=== PATIENT | male | born 1965 | race Caucasian/White ===

== ENCOUNTER 2020-06-24 09:51 | Emergency (ER) | payer OTHER ==
[2020-06-24 10:29] VITALS: BP 140/73; PULSE 90; TEMP 98.3; BMI 30.1
[2020-06-24] MEDS ORDERED: SODIUM CHLORIDE 1,000 ML IV STA (10:40)
[2020-06-24 11:56] LABS: BASO % 0.7 % (0-2.0); EOS % 0.4 % (0-4.5); HEMATOCRIT 43.1 % (35.4-49); HEMOGLOBIN 14.4 GM/dL (11.7-16.9); LYMPH % 14.3 % (8-40); MCH 28.9 pg (25.7-33.7); MCHC 33.4 g/dl (32.0-35.9); MEAN CELL VOLUME 86.7 fl (80-96); MEAN PLT VOLUME 9.8 fl (7.5-11.1); MONO % 4.8 % (3.8-10.2); NEUT % 79.8 % (42.8-82.8); PLATELET COUNT 201 K/MM3 (134-434); RBC 4.98 M/mm3 (4.00-5.60); RDW 13.7 % (11.9-15.9); WHITE BLOOD COUNT 8.6 K/mm3 (4.0-10.0)
[2020-06-24 12:15] LABS: ALBUMIN 4.2 g/dl (3.4-5.0); BLOOD UREA NITROGEN 18.8 mg/dL (7-18); CALCIUM 9.3 mg/dL (8.5-10.1)
[2020-06-24 12:16] LABS: MAGNESIUM 1.8 mg/dL (1.8-2.4)
[2020-06-24 12:19] LABS: CREATININE 1.1 mg/dL (0.55-1.3)
[2020-06-24 12:20] LABS: BILIRUBIN,TOTAL 0.5 mg/dL (0.2-1); TOT PROT 7.5 g/dl (6.4-8.2)
[2020-06-24 12:33] LABS: PH,URINE 8.5 (5.0-8.0); URINE APPEARANCE CLEAR; URINE BILIRUBIN NEGATIVE (NEGATIVE); URINE COLOR YELLOW; URINE GLUCOSE (UA) 2+ (NEGATIVE); URINE KETONE TRACE (NEGATIVE); URINE LEUK ESTERASE NEGATIVE (NEGATIVE); URINE NITRITE NEGATIVE (NEGATIVE); URINE PROTEIN NEGATIVE (NEGATIVE); URINE UROBILINOGEN 0.2 mg/dL (0.2-1.0)
== END 2020-06-24 14:40 | disposition home or self-care (01) ==
LOC: JER 09:51
PROC: 3E0337Z Introduction of Electrolytic and Water Balance Substance into Peripheral Vein, Percutaneous Approach (ICD-10-PCS; principal; 2020-06-24)
DX: R30.9 Painful micturition, unspecified (principal); R68.2 Dry mouth, unspecified
CPT/HCPCS: 36415; 80053; 81003; 82010; 82962; 83735; 85025; 99283-25

== ENCOUNTER 2023-06-18 09:48 | Emergency (ER) | payer OTHER ==
[2023-06-18] MEDS ORDERED: ONDANSETRON 4 MG/2 ML VIAL IVPUSH ONE ×2 (10:19→12:40)
[2023-06-18] MEDS ORDERED: morphine CARPU-JECT 4 MG/1 ML DISP.SYRIN IVPUSH ONE (10:20)
[2023-06-18] MEDS ORDERED: morphine SULFATE 4 MG/ML VIAL ONE (10:26)
[2023-06-18 10:44] LABS: HEMATOCRIT 48.5 % (35.4-49); MCH 28.8 pg (25.7-33.7); MEAN CELL VOLUME 87.2 fl (80-96); MEAN PLT VOLUME 9.6 fl (7.5-11.1); PLATELET COUNT 167.2 10^3/uL (134-434); RBC 5.56 10^6/uL (4.00-5.60); RDW 14.2 % (11.9-15.9); WHITE BLOOD COUNT 8.1 10^3/uL (4.0-10.8)
[2023-06-18] MEDS ORDERED: HYDROmorphone HCl 2 MG/ML VIAL IVPUSH ONE (10:54)
[2023-06-18 11:06] LABS: EPITHELIAL CELLS 0-5 /hpf
[2023-06-18 11:36] LABS: ALBUMIN 4.5 g/dl (3.4-5.0); BILIRUBIN,TOTAL 0.4 mg/dl (0.2-1); CALCIUM 9.9 mg/dl (8.5-10.1); CREATININE 1.4 mg/dl (0.6-1.3); POTASSIUM 4.5 mmol/L (3.5-5.1); TOT PROT 7.2 g/dl (6.4-8.2)
[2023-06-18 11:41] LABS: PLATELET ESTIMATE ADEQUATE
[2023-06-18] MEDS ORDERED: ONDANSETRON 4 MG/2 ML VIAL ONE (12:42)
[2023-06-18 16:01] VITALS: BP 150/81; PULSE 65; RESP 16; TEMP 98.1; BMI 28.5
== END 2023-06-18 13:54 | disposition home or self-care (01) ==
LOC: FER 09:48
PROC: 3E033NZ Introduction of Analgesics, Hypnotics, Sedatives into Peripheral Vein, Percutaneous Approach (ICD-10-PCS; principal; 2023-06-18)
PROC: 3E033GC Introduction of Other Therapeutic Substance into Peripheral Vein, Percutaneous Approach (ICD-10-PCS; 2023-06-18)
PROC: 3E033NZ Introduction of Analgesics, Hypnotics, Sedatives into Peripheral Vein, Percutaneous Approach (ICD-10-PCS; 2023-06-18)
DX: R10.9 Unspecified abdominal pain (principal); N13.0 Hydronephrosis with ureteropelvic junction obstruction; R79.89 Other specified abnormal findings of blood chemistry
CPT/HCPCS: 36415; 74176-TC; 80053; 81003; 81015; 85027; 87086; 96374; 96375; 96376; 99284-25

== ENCOUNTER 2023-10-07 04:05 | Day surgery (SDC) | payer OTHER ==
[2023-10-03 17:14] VITALS: BMI 28.5
[2023-10-07 06:24] VITALS: BP 136/76; PULSE 71; RESP 18; TEMP 97.8
== END 2023-10-07 08:00 | disposition home or self-care (01) ==
LOC: JASU-SURG 04:05
PROVIDERS: ATTEND Urology
PROC: 3E033GC Introduction of Other Therapeutic Substance into Peripheral Vein, Percutaneous Approach (ICD-10-PCS; principal; 2023-10-07)
DX: Z53.8 Procedure and treatment not carried out for other reasons (principal)
CPT/HCPCS: 82962

== ENCOUNTER 2023-10-21 04:06 | Day surgery (SDC) | payer OTHER ==
[2023-10-17 11:08] VITALS: BMI 28.5
[2023-10-21 13:38] VITALS: RESP 18
[2023-10-21] MEDS ORDERED: FENTANYL CITRATE/PF 50 MCG/ML VIAL ONE (16:21)
[2023-10-21] MEDS ORDERED: PROPOFOL 20 ML ONE (16:21)
[2023-10-21] MEDS ORDERED: MIDAZOLAM HCL 2 MG/2 ML SINGLE DOSE VIAL ONE (16:22)
[2023-10-21 17:11] VITALS: BP 124/70; PULSE 80; TEMP 97.8
== END 2023-10-21 18:06 | disposition home or self-care (01) ==
LOC: JASU-SURG 04:06
PROVIDERS: ATTEND Urology
PROC: 0TF4XZZ Fragmentation in Left Kidney Pelvis, External Approach (ICD-10-PCS; principal; 2023-10-21 16:31)
DX: N20.0 Calculus of kidney (principal)
CPT/HCPCS: 36415; 82010; 82947

== ENCOUNTER 2024-03-12 18:26 | Inpatient (IN) | payer OTHER ==
[2024-03-12 18:42] VITALS: BMI 28.5
[2024-03-12] MEDS ORDERED: MORPHINE SULFATE 2 MG/ML SYRINGE ONE ×2 (19:18→21:41)
[2024-03-12] MEDS: morphine CARPU-JECT 2 MG/1 ML DISP.SYRIN IVPUSH ONE (19:46)
[2024-03-12 20:01] LABS: POTASSIUM 4.3 mmol/L (3.5-5.1)
[2024-03-12 20:02] LABS: CALCIUM 9.5 mg/dL (8.5-10.1)
[2024-03-12 20:03] LABS: ALBUMIN 3.4 g/dl (3.4-5.0); BLOOD UREA NITROGEN 18.4 mg/dL (7-18)
[2024-03-12 20:06] LABS: CREATININE 1.3 mg/dL (0.55-1.3)
[2024-03-12 20:08] LABS: BILIRUBIN,TOTAL 0.6 mg/dL (0.2-1); TOT PROT 7.7 g/dl (6.4-8.2)
[2024-03-12 20:37] LABS: BASO % 0.6 % (0-2.0); EOS % 0.5 % (0-4.5); HEMATOCRIT 47.9 % (35.4-49); HEMOGLOBIN 15.8 GM/dL (11.7-16.9); LYMPH % 14.2 % (8-40); MCH 28.3 pg (25.7-33.7); MCHC 33.1 g/dl (32.0-35.9); MEAN CELL VOLUME 85.6 fl (80-96); MEAN PLT VOLUME 8.5 fl (7.5-11.1); MONO % 8.2 % (3.8-10.2); NEUT % 76.5 % (42.8-82.8); PLATELET COUNT 211 10^3/uL (134-434); RDW 14.3 % (11.9-15.9); WHITE BLOOD COUNT 16.5 K/mm3 (4.0-10.0)
[2024-03-12 20:40] LABS: EPI CELLS 2 /uL (0-25.1); HYALINE CASTS 0 /uL (0-3.1); PH,URINE 5.5 (5.0-8.0); URINE APPEARANCE CLEAR; URINE BACTERIA 2 /uL (0-1359); URINE BILIRUBIN NEGATIVE (NEGATIVE); URINE COLOR YELLOW; URINE GLUCOSE (UA) 3+ (NEGATIVE); URINE KETONE TRACE (NEGATIVE); URINE LEUK ESTERASE NEGATIVE (NEGATIVE); URINE NITRITE NEGATIVE (NEGATIVE); URINE PROTEIN TRACE (NEGATIVE); URINE RBC 14 /uL (0-23.9); URINE UROBILINOGEN 0.2 mg/dL (0.2-1.0); URINE WBC 8 /uL (0-25.8)
[2024-03-12] MEDS: SODIUM CHLORIDE 0.9% 500 ML INFUS.BAG IV ONE (20:59)
[2024-03-12] MEDS ORDERED: CEFTRIAXONE 1 GM/50 ML BAG ONE (21:33)
[2024-03-12] MEDS ORDERED: ACETAMINOPHEN 325 MG TABLET (FP) PO PRN (21:34)
[2024-03-12] MEDS: CEFTRIAXONE 1 GM in DEXTROSE 5%-WATER - 100 ML IVPB ONE (21:52)
[2024-03-12] MEDS: MORPHINE SULFATE 2 MG/ML SYRINGE IVPUSH PRN (21:52)
[2024-03-12] MEDS: SODIUM CHLORIDE 0.9% 1000 ML INFUS.BAG IV ONE (21:52)
[2024-03-12] MEDS: INSULIN ASPART SLIDING SCALE (NOVOLOG) 1 VIAL SQ SCH (23:15)
[2024-03-13] MEDS ORDERED: ACETAMINOPHEN 1000 MG/100 ML BAG IVPB PRN (01:41)
[2024-03-13] MEDS: PIPERACILLIN/TAZOB 3.375 GM 3.375 GM in DEXTROSE 5%-WATER - 50 ML IVPB ONE (02:22)
[2024-03-13 09:52] LABS: BASO % 0.4 % (0-2.0); EOS % 0.3 % (0-4.5); HEMATOCRIT 44.9 % (35.4-49); HEMOGLOBIN 14.4 GM/dL (11.7-16.9); MCH 28.2 pg (25.7-33.7); MCHC 32.1 g/dl (32.0-35.9); MEAN CELL VOLUME 87.9 fl (80-96); MEAN PLT VOLUME 9.3 fl (7.5-11.1); MONO % 7.5 % (3.8-10.2); NEUT % 80.8 % (42.8-82.8); PLATELET COUNT 207 10^3/uL (134-434); RBC 5.11 M/mm3 (4.00-5.60); RDW 14.4 % (11.9-15.9); WHITE BLOOD COUNT 15.8 K/mm3 (4.0-10.0)
[2024-03-13 10:10] LABS: POTASSIUM 4.2 mmol/L (3.5-5.1)
[2024-03-13 10:13] LABS: CALCIUM 8.9 mg/dL (8.5-10.1)
[2024-03-13 10:14] LABS: ALBUMIN 3.2 g/dl (3.4-5.0); BLOOD UREA NITROGEN 15.9 mg/dL (7-18); MAGNESIUM 2.3 mg/dL (1.8-2.4)
[2024-03-13 10:17] LABS: CREATININE 1.1 mg/dL (0.55-1.3); PHOSPHOROUS 3.3 mg/dL (2.5-4.9)
[2024-03-13 10:18] LABS: BILIRUBIN,TOTAL 0.9 mg/dL (0.2-1)
[2024-03-13] MEDS ORDERED: PIPERACILLIN/TAZOBACTAM 3.375 GM VIAL IVPB ONE (10:29)
[2024-03-13] MEDS ORDERED: BUPIVACAINE HCL/PF 0.25% (2.5MG/ML) 10 ML VIAL ONE ×2 (10:30→10:33)
[2024-03-13] MEDS ORDERED: MIDAZOLAM HCL 2 MG/2 ML SINGLE DOSE VIAL ONE (10:50)
[2024-03-13] MEDS: PIPERACILLIN/TAZOBACTAM 2.25 GM VIAL IVPB ONE (11:05)
[2024-03-13] MEDS: BUPIVACAINE HCL/PF 0.25% (2.5MG/ML) 10 ML VIAL IJ ONE ×2 (11:25)
[2024-03-13] MEDS ORDERED: ROCURONIUM BROMIDE 50 MG/5 ML SYRINGE ONE (11:37)
[2024-03-13] MEDS ORDERED: PROPOFOL 20 ML ONE ×2 (11:38→12:06)
[2024-03-13] MEDS ORDERED: LIDOCAINE HCL/PF 2% SDV 5ML VIAL ONE (11:38)
[2024-03-13] MEDS ORDERED: ONDANSETRON 4 MG/2 ML VIAL ONE (13:34)
[2024-03-13] MEDS ORDERED: SUGAMMADEX SODIUM 200 MG/2 ML VIAL ONE (13:34)
[2024-03-13] MEDS ORDERED: oxyCODONE HCL 5 MG TABLET PO PRN ×3 (13:47→14:40)
[2024-03-13] MEDS ORDERED: ONDANSETRON 4 MG/2 ML VIAL IVPUSH PRN ×2 (13:47→14:40)
[2024-03-13] MEDS: INSULIN ASPART SLIDING SCALE (NOVOLOG) 1 VIAL SQ SCH (17:35)
[2024-03-13] MEDS: ACETAMINOPHEN 1000 MG/100 ML BAG IVPB SCH (21:48)
[2024-03-13] MEDS: LACTATED RINGERS SOLUTION 1,000 ML/1,000 ML INFUS.BAG IV SCH (21:48)
[2024-03-14] MEDS: LACTATED RINGERS SOLUTION 1,000 ML IV SCH ×2 (02:20)
[2024-03-14 10:12] LABS: HEMATOCRIT 42.3 % (35.4-49); HEMOGLOBIN 13.6 GM/dL (11.7-16.9); MCH 28.2 pg (25.7-33.7); MCHC 32.1 g/dl (32.0-35.9); MEAN CELL VOLUME 87.8 fl (80-96); MEAN PLT VOLUME 8.8 fl (7.5-11.1); PLATELET COUNT 209 10^3/uL (134-434); RBC 4.81 M/mm3 (4.00-5.60); RDW 14.1 % (11.9-15.9); WHITE BLOOD COUNT 13.5 K/mm3 (4.0-10.0)
[2024-03-14 10:27] LABS: POTASSIUM 4.7 mmol/L (3.5-5.1)
[2024-03-14 10:29] LABS: ALBUMIN 2.7 g/dl (3.4-5.0); CALCIUM 8.5 mg/dL (8.5-10.1)
[2024-03-14 10:30] LABS: BLOOD UREA NITROGEN 17.1 mg/dL (7-18)
[2024-03-14 10:33] LABS: CREATININE 1.1 mg/dL (0.55-1.3)
[2024-03-14 10:34] LABS: BILIRUBIN,TOTAL 0.9 mg/dL (0.2-1); TOT PROT 6.3 g/dl (6.4-8.2)
[2024-03-14] MEDS ORDERED: oxyCODONE HCL 5 MG TABLET PO PRN (13:13)
[2024-03-14] MEDS: CEFTRIAXONE 2 GM in DEXTROSE 5%-WATER 100 ML IVPB SCH (15:08)
[2024-03-14] MEDS: ACETAMINOPHEN 325 MG TABLET (FP) PO PRN (18:44)
[2024-03-15] MEDS: TAMSULOSIN HCL 0.4 MG CAP PO SCH (01:05)
[2024-03-15 10:26] LABS: HEMATOCRIT 41.1 % (35.4-49); HEMOGLOBIN 13.3 GM/dL (11.7-16.9); MCH 28.4 pg (25.7-33.7); MCHC 32.5 g/dl (32.0-35.9); MEAN CELL VOLUME 87.5 fl (80-96); MEAN PLT VOLUME 8.5 fl (7.5-11.1); PLATELET COUNT 221 10^3/uL (134-434); RBC 4.69 M/mm3 (4.00-5.60); RDW 14.4 % (11.9-15.9); WHITE BLOOD COUNT 11.1 K/mm3 (4.0-10.0)
[2024-03-15 10:42] LABS: POTASSIUM 4.1 mmol/L (3.5-5.1)
[2024-03-15 10:44] LABS: CALCIUM 8.6 mg/dL (8.5-10.1)
[2024-03-15 10:45] LABS: ALBUMIN 2.6 g/dl (3.4-5.0); BLOOD UREA NITROGEN 19.4 mg/dL (7-18)
[2024-03-15 10:50] LABS: BILIRUBIN,TOTAL 0.9 mg/dL (0.2-1); TOT PROT 6.2 g/dl (6.4-8.2)
[2024-03-15 21:08] VITALS: BP 132/67; PULSE 75; RESP 16; TEMP 99
[2024-03-15] MEDS ORDERED: TAMSULOSIN HCL 0.4 MG CAP PO SCH (22:00)
[2024-03-16 09:39] LABS: HEMATOCRIT 40.7 % (35.4-49); HEMOGLOBIN 13.6 GM/dL (11.7-16.9); MCH 28.7 pg (25.7-33.7); MCHC 33.4 g/dl (32.0-35.9); MEAN CELL VOLUME 85.9 fl (80-96); PLATELET COUNT 255 10^3/uL (134-434); RBC 4.74 M/mm3 (4.00-5.60); RDW 14.6 % (11.9-15.9); WHITE BLOOD COUNT 8.8 K/mm3 (4.0-10.0)
[2024-03-16 09:56] LABS: CALCIUM 8.8 mg/dL (8.5-10.1)
[2024-03-16 09:58] LABS: ALBUMIN 2.6 g/dl (3.4-5.0); BLOOD UREA NITROGEN 20.9 mg/dL (7-18)
[2024-03-16 10:00] LABS: CREATININE 0.9 mg/dL (0.55-1.3)
[2024-03-16 10:02] LABS: BILIRUBIN,TOTAL 0.8 mg/dL (0.2-1); TOT PROT 6.3 g/dl (6.4-8.2)
== END 2024-03-16 13:03 | disposition home or self-care (01) | DRG 263 ==
LOC: JER 18:26 → UNDOADMIN 20:47 → JERBED 20:47 → J7W 22:33 → JERBED 22:33 → SUATTDRO 03-13 10:17 → JASUSAT 03-13 10:17 → J7W 03-13 10:40 → J8W 03-13 16:18 → JASUSAT 03-14 13:39 → J8W 03-14 13:39
PROVIDERS: ADMIT Student in an Organized Health Care Education/Training Program; ATTEND Nurse Practitioner Acute Care
PROC: 0FT44ZZ Resection of Gallbladder, Percutaneous Endoscopic Approach (ICD-10-PCS; principal; 2024-03-13 10:45)
DX: K81.0 Acute cholecystitis (principal); N40.0 Benign prostatic hyperplasia without lower urinary tract symptoms; D72.829 Elevated white blood cell count, unspecified; E11.9 Type 2 diabetes mellitus without complications; E86.0 Dehydration
CPT/HCPCS: 36415; 74176-TC; 76705-TC; 80053; 81003; 82962; 83690; 83735; 84100; 85025; 85027; 86850; 86900; 86901; 87086; 88304-TC; 94760; 99285-25; J0131